=== PATIENT | male | born 1965 | race Caucasian/White ===

== ENCOUNTER 2018-08-01 11:41 | Emergency (ER) | payer BC ==
[2018-08-01 12:24] LABS: CHLORIDE,CL 102 mmol/L (98-107); SODIUM,NA 139 mmol/L (136-145)
--- NOTE | 2018-08-01 13:05 | EDM.PDOC ---
ED HPI GENERAL MEDICAL PROBLEM - General Chief Complaint: General Stated Complaint: Cold s/s, right elbow stiffness, left knee Time Seen by Provider: 08/01/18 12:20 Source of Information: Reports: Patient History Limitations: Reports: No Limitations - History of Present Illness INITIAL COMMENTS - FREE TEXT/NARRATIVE: Patient comes to ER with several complaints. First complaint is irritated throat, dry cough (some mucus production in the mornings when he wakes up), and clear runny nose. Denies SOB. No weight changes, nausea/emesis/bowel changes, urinary changes, ear pain, or headache. No specific fevers reported but says he feels chilled today. No chest pain. Annabel no help. No history of allergies. Tried one Claritin yesterday. Symptoms present about 2 weeks. Second complaint is joint pain. Noticed right elbow discomfort 5 days ago, and left knee pain within the last 24 hours. Elbow feels stiff. Denies injuries/ changes of activity preceding pain developing. No history of similar joint pain in past. Reports finding normal sized tick on neck. Has not noted any deer ticks/nymphs , no rashes. No other changes/acute complaints reported. Right Elbow Pain Score (Numeric/FACES): 7 Left Knee Pain Score (Numeric/FACES): 7 - Related Data Allergies Allergy/AdvReac Type Severity Reaction Status Date / Time No Known Allergies Allergy Verified 08/01/18 11:42 Home Meds: Home Meds Doxycycline [Vibramycin] 100 mg PO BID #30 cap 08/01/18 [Rx] Fexofenadine [Annabel] 1 tab PO ASDIRECTED PRN 08/01/18 [History] guaiFENesin [Mucinex] 1 tab PO ASDIRECTED PRN 08/01/18 [History] guaiFENesin/Dextromethorphan [Tussin Dm Liquid] 1 dose PO ASDIRECTED PRN [History] Past Medical History Genitourinary History: Reports: Renal Calculus Endocrine/Metabolic History: Reports: Diabetes, Type II (Noted to have blood glucose of 185 today. No previous diagnosis of diabetes.), Obesity/BMI 30+ - History Comment History Comment: Has been told he has "water retention" in lower limbs around ankles in past Social & Family History - Tobacco Use Smoking Status *Q: Never Smoker - Caffeine Use Caffeine Use: Reports: Coffee - Recreational Drug Use Recreational Drug Use: No ED ROS GENERAL - Review of Systems Review Of Systems: ROS reveals no pertinent complaints other than HPI. ED EXAM, GENERAL - Physical Exam Exam: See Below Exam Limited By: No Limitations General Appearance: Alert, WD/WN, No Apparent Distress, Obese Eye Exam: Bilateral Eye: EOMI, PERRL Ears: Normal External Exam, Normal Canal, Hearing Grossly Normal, Normal TMs Nose: Normal Inspection, Normal Mucosa, No Blood. No: Nasal Drainage Throat/Mouth: Normal Inspection, Normal Lips, Normal Voice, No Airway Compromise Head: Atraumatic, Normocephalic Neck: Supple, Limited Range of Motion Respiratory/Chest: No Respiratory Distress, Lungs Clear, Normal Breath Sounds, No Accessory Muscle Use, Chest Non-Tender Cardiovascular: Regular Rate, Rhythm, No Murmur GI/Abdominal: Soft, Non-Tender (Male) Exam: Deferred Rectal (Males) Exam: Deferred Back Exam: No: CVA Tenderness (L), CVA Tenderness (R), Muscle Spasm, Paraspinal Tenderness, Vertebral Tenderness Extremities: Normal Capillary Refill, Pedal Edema (mild, bilateral ankles), Other (mild increase in warmth noted right elbow. Tender with palpation over forearm extensor muscles. No redness/rash. Circumference right wrist 22cm and it is 37cm just below elbow, this compares to 21cm and 36 1/2 on the left side. Mild tenderness with palpation inferior border of left patella, otherwise left knee is nontender. Able to flex and extend the knee and ambulate. ) Neurological: Alert, Oriented, Normal Cognition, No Motor/Sensory Deficits Psychiatric: Normal Affect, Normal Mood Skin Exam: Warm, Dry, Intact, Normal Color Course - Vital Signs Last Recorded V/S: Last Vital Signs Temp 37.3 C 08/01/18 11:50 Pulse 68 08/01/18 11:50 Resp 18 08/01/18 11:50 BP 136/81 08/01/18 11:50 Pulse Ox 95 08/01/18 11:50 - Orders/Labs/Meds Orders: Active Orders 24 hr Category Date Time Status CXR [Chest 2V] [CR] Stat Exams 08/01/18 11:55 Taken Labs: Laboratory Tests 08/01/18 08/01/18 Range/Units 12:00 12:00 WBC 7.3 (4.0-10.2) K/uL RBC 4.69 (4.33-5.41) M/uL Hgb 14.3 (13.1-16.8) g/dL Hct 41.4 (39.0-49.0) % MCV 88.3 (84.0-98.0) fL MCH 30.5 (28.2-33.3) pg MCHC 34.5 (31.7-36.0) g/dL RDW 12.8 (11.2-14.1) % Plt Count 227 (150-350) K/uL Neut % (Auto) 69.2 (45.0-80.0) % Lymph % (Auto) 21.7 (10.0-50.0) % [place] % (Auto) 6.9 (2.0-14.0) % Eos % (Auto) 1.9 (0.0-5.0) % Baso % (Auto) 0.3 (0.0-2.0) % Neut # (Auto) 5.02 (1.40-7.00) K/uL Lymph # (Auto) 1.57 (0.50-3.50) K/uL [place] # (Auto) 0.50 (0.00-1.00) K/uL Eos # (Auto) 0.14 (0.00-0.50) K/uL Baso # (Auto) 0.02 (0.00-0.20) K/uL Sodium 139 (136-145) mmol/L Potassium 3.8 (3.5-5.1) mmol/L Chloride 102 (98-107) mmol/L Carbon Dioxide 26.2 (21.0-32.0) mmol/L BUN 9 (7-18) mg/dL Creatinine 0.96 (0.51-1.17) mg/dL Est Cr Clr Drug Dosing 95.05 mL/min Estimated GFR (MDRD) > 60 mL/min Glucose 185 H (74-106) mg/dL Calcium 8.5 (8.5-10.1) mg/dL Total Bilirubin 0.7 (0.2-1.0) mg/dL AST 22 (15-37) U/L ALT 42 (12-78) U/L Alkaline Phosphatase 130 H (46-116) IU/L Total Protein 7.4 (6.4-8.2) g/dL Albumin 3.9 (3.4-5.0) g/dL - Radiology Interpretation Free Text/Narrative:: Chest xray: mild changes left lower lung may reflect atelectasis vs early developing pneumonia. - Re-Assessments/Exams Free Text/Narrative Re-Assessment/Exam: 08/01/18 13:11 Given the new right elbow and left knee pain, will test for tick diseases. Patient will be placed on antibiotics as precaution. Doxy chosen as it will also cover community acquired pneumonia. However patient's lung complaints could also be due to allergies/viral cause. Follow up appointment made for two days from now at the clinic. If any increase in measurements are noted for arm circumference would recommend US study to rule out any possibility of vascular issue. Patient is in agreement with plan. Blood sugar elevation discussed with patient along with dietary recommendations. To follow up with primary provider regarding starting regular blood sugar monitoring and if needed medications if diet cannot be improved. Departure - Departure Time of Disposition: 13:14 Disposition: Home, Self-Care 01 Condition: Good Clinical Impression: Bronchitis, Pain in joint of right elbow Joint pain, knee Qualifiers: Laterality: left Qualified Code(s): M25.562 - Pain in left knee Diabetes mellitus Qualifiers: Diabetes mellitus type: type 2 Diabetes mellitus fdc insulin use: without longshore equipment operator use Diabetes mellitus complication status: without complication Qualified Code(s): E11.9 - Type 2 diabetes mellitus without complications - Discharge Information *PRESCRIPTION DRUG MONITORING PROGRAM REVIEWED*: Not Applicable *COPY OF PRESCRIPTION DRUG MONITORING REPORT IN PATIENT JODI: Not Applicable Prescriptions: Doxycycline [Vibramycin] 100 mg PO BID #30 cap Instructions: Type 2 Diabetes Mellitus, Self Care, Adult, [id number] Referrals: PCP,None [Primary Care Provider] - Additional Instructions: Follow up Wednesday at your scheduled recheck. It will take awhile for the tick panel results to come back so you will need to be able to stay in touch with the clinic. You also will need to look at your diet and learn how to track your sugar. The clinic should be able to help you get started on this. Good basic rule to start: Avoid breads/anything made with sugar or flour/ sweets. Eat whole foods. Avoid boxed/processed foods. Observe for changes/new joint aches. You may need to get an extension on your Doxycycline depending on how things go. Currently you have 15 days of treatment. Follow up otherwise as needed if you have problems. - My Orders Last 24 Hours: My Active Orders 08/01/18 11:55 CXR [Chest 2V] [CR] Stat - Assessment/Plan Last 24 Hours: My Active Orders 08/01/18 11:55 CXR [Chest 2V] [CR] Stat
[2018-08-01 13:33] LABS: HEMOGLOBIN A1C 6.4 % (4.3-5.7)
== END 2018-08-01 14:00 | disposition home or self-care (01) ==
LOC: LL.ED 11:41
DX: J40 Bronchitis, not specified as acute or chronic (principal); M25.562 Pain in left knee; M25.521 Pain in right elbow; E11.9 Type 2 diabetes mellitus without complications; Z79.4 Long term (current) use of insulin
CPT/HCPCS: 36415; 71046; 80053; 83036; 85025; 99283-25